=== PATIENT | female | born 1950 | race Caucasian/White ===

== ENCOUNTER 2021-10-20 08:55 | Day surgery (SDC) | payer MEDICARE, OTHER ==
[~2021-10-20 08:55] MED LIST: Metoclopramide 10 MG/2 ML SDV IV PRN; Sodium Chloride 0.9% 1,000 ML IV SCH
[2021-10-20] MEDS ORDERED: Propofol 200 MG/20 ML SDV ONE (12:50)
== END 2021-10-20 14:10 | disposition home or self-care (01) ==
LOC: LB.SDS 08:55
PROVIDERS: ATTEND Surgery
DX: Z12.11 Encounter for screening for malignant neoplasm of colon (principal); K57.30 Diverticulosis of large intestine without perforation or abscess without bleeding; I10 Essential (primary) hypertension
CPT/HCPCS: J2704; J7030

== ENCOUNTER 2022-07-05 07:47 | Emergency (ER) | payer MEDICARE, OTHER ==
[2022-07-05] MEDS ORDERED: Midazolam 1 MG/ML 2 ML SDV IVPUSH ONE ×3 (08:45→09:00)
[2022-07-05] MEDS ORDERED: fentaNYL 100 MCG/2 ML SDV IVPUSH ONE (08:45)
[2022-07-05] MEDS ORDERED: fentaNYL 100 MCG/2 ML SDV ONE ×2 (08:51→09:09)
[2022-07-05] MEDS ORDERED: Midazolam 1 MG/ML 2 ML SDV ONE ×3 (08:51→09:09)
[2022-07-05] MEDS: fentaNYL 100 MCG/2 ML SDV IVPUSH PRN ×2 (09:06→09:14)
== END 2022-07-05 10:52 | disposition home or self-care (01) ==
LOC: LB.ED 07:47
DX: S43.014A Anterior dislocation of right humerus, initial encounter (principal); S43.034A Inferior dislocation of right humerus, initial encounter; E78.00 Pure hypercholesterolemia, unspecified; I10 Essential (primary) hypertension; Z79.899 Other long term (current) drug therapy; W19.XXXA Unspecified fall, initial encounter
CPT/HCPCS: 23650; 73020-RT; 73030-RT; 99283; J2250; J3010

== ENCOUNTER 2023-03-20 08:20 | Emergency (ER) | payer MEDICARE, OTHER ==
[2023-03-20] MEDS: Ondansetron 4 MG Tab.DIS PO ONE (09:00)
[2023-03-20] MEDS: Sodium Chloride 0.9% 1,000 ML IV SCH ×2 (09:15→15:00)
[2023-03-20] MEDS: Potassium Chloride Riders 10 MEQ in Premix Bag 1 BAG IV ONE (10:35)
[2023-03-20 11:28] LABS: A/G RATIO 0.7 (0.8-2.0); ALBUMIN 2.9 g/dL (3.4-5.0); ANION GAP 19.2 mmol/L (5.0-15.0); BILIRUBIN TOTAL 0.7 mg/dL (0.0-1.0); BUN/CREATININE RATIO 25.6 (6-25); CALCIUM 8.5 mg/dL (8.5-10.1); CARBON DIOXIDE,CO2 21.6 mmol/L (21.0-32.0); CREATININE 1.33 mg/dL (0.55-1.02); EST CRCL DRUG DOSING (CG) 35.79 mL/min; PROTEIN TOTAL,TP 7.3 g/dL (6.4-8.2)
[2023-03-20 11:33] LABS: POTASSIUM,K 2.8 mmol/L (3.5-5.1)
[2023-03-20 11:43] LABS: WHITE BLOOD CELL COUNT,WBC 10.9 K/uL (4.0-11.0)
[2023-03-20 11:44] LABS: HEMATOCRIT 40.4 % (37.0-47.0); MEAN CORPUSCULAR HEMOGLOBIN 35.1 pg (27.0-32.0); MEAN CORPUSCULAR HGB CONC 32.2 g/dL (31.0-35.0); MEAN PLATELET VOLUME 9.6 fL (6.0-10.0); RED BLOOD CELL COUNT 3.7 M/uL (3.80-5.80); RED CELL DISTRIBUTION WIDTH 11.7 % (11.0-16.0)
[2023-03-20] MEDS: NS + KCl 20mEq/L 1,000 ML IV SCH (11:46)
[2023-03-20] MEDS: Potassium Chloride 20 MEQ Tab.ER PO ONE (11:50)
[2023-03-20 11:51] LABS: INFLUENZA A NAA POSITIVE (NEGATIVE); INFLUENZA B NAA NEGATIVE (NEGATIVE); RESPIRATORY SYNCYTIAL VIR NAA NEGATIVE (NEGATIVE)
[2023-03-20 11:55] LABS: CORONAVIRUS COVID-19 NAA NEGATIVE (NEGATIVE)
[2023-03-20] MEDS: Potassium Chloride Riders 50 ML ONE (14:26)
[2023-03-20 15:14] LABS: ANION GAP 17.1 mmol/L (5.0-15.0); BUN/CREATININE RATIO 27.4 (6-25); CALCIUM 7.8 mg/dL (8.5-10.1); CARBON DIOXIDE,CO2 20.7 mmol/L (21.0-32.0); CREATININE 1.13 mg/dL (0.55-1.02); EST CRCL DRUG DOSING (CG) 42.13 mL/min; POTASSIUM,K 3.8 mmol/L (3.5-5.1)
[2023-03-20] MEDS: Iodixanol 652 MG/ML 100 ML Bottle IV SCH (16:25)
[2023-03-20] MEDS: Sodium Chloride 0.9% 50 ML SDV FLUSH ONE (16:25)
== END 2023-03-20 18:09 | disposition home or self-care (01) ==
LOC: LB.ED 08:20
DX: R42 Dizziness and giddiness (principal); N17.9 Acute kidney failure, unspecified; E87.6 Hypokalemia; E86.0 Dehydration; I10 Essential (primary) hypertension; E78.00 Pure hypercholesterolemia, unspecified; Z79.899 Other long term (current) drug therapy
CPT/HCPCS: 0241U; 36415; 71275; 80048; 80053; 84132; 84484; 85027; 85379; 93005; 96360; 96361; 96365; 96366; 99284; A9270; J3480; J3490; J7030; Q0162; 93010

== ENCOUNTER 2023-03-22 13:12 | Emergency (ER) | payer MEDICARE, OTHER ==
[2023-03-22 14:44] LABS: HEMATOCRIT 39.3 % (37.0-47.0); HEMOGLOBIN 12.1 g/dL (11.5-16.5); MEAN CORPUSCULAR HEMOGLOBIN 34.7 pg (27.0-32.0); MEAN CORPUSCULAR HGB CONC 30.8 g/dL (31.0-35.0); MEAN CORPUSCULAR VOLUME 113 fL (76-96); MEAN PLATELET VOLUME 9.5 fL (6.0-10.0); PLATELET COUNT,PLT 419 K/uL (150-500); RED BLOOD CELL COUNT 3.49 M/uL (3.80-5.80); RED CELL DISTRIBUTION WIDTH 11.7 % (11.0-16.0); WHITE BLOOD CELL COUNT,WBC 11.5 K/uL (4.0-11.0)
[2023-03-22 15:06] LABS: A/G RATIO 0.6 (0.8-2.0); ALBUMIN 2.5 g/dL (3.4-5.0); ANION GAP 15.8 mmol/L (5.0-15.0); BILIRUBIN TOTAL 0.6 mg/dL (0.0-1.0); BUN/CREATININE RATIO 18.3 (6-25); CALCIUM 8.3 mg/dL (8.5-10.1); CARBON DIOXIDE,CO2 20.6 mmol/L (21.0-32.0); CREATININE 0.93 mg/dL (0.55-1.02); EST CRCL DRUG DOSING (CG) 49.2 mL/min; POTASSIUM,K 3.4 mmol/L (3.5-5.1); PROTEIN TOTAL,TP 6.6 g/dL (6.4-8.2)
[2023-03-22 15:15] LABS: GIANT PLATELETS OCCASIONAL
[2023-03-22] MEDS: Magnesium Sulfate/Water 2 GM in Premix Bag 1 BAG IV SCH (15:59)
[2023-03-22] MEDS ORDERED: Magnesium Sulfate/Water 2 GM in Premix Bag 1 BAG IV SCH (16:00)
[2023-03-22] MEDS: Magnesium Sulfate/Water 4 GM in Premix Bag 1 BAG IV ONE (18:50)
== END 2023-03-22 20:00 | disposition home or self-care (01) ==
LOC: LB.ED 13:12
DX: E83.42 Hypomagnesemia (principal); R53.1 Weakness; E87.6 Hypokalemia; I10 Essential (primary) hypertension; E78.00 Pure hypercholesterolemia, unspecified; E66.9 Obesity, unspecified; Z68.33 Body mass index [BMI] 33.0-33.9, adult; Z79.899 Other long term (current) drug therapy
CPT/HCPCS: 36415; 80053; 83735; 85025; 96365; 96366; 99284; J3475; 99283

== ENCOUNTER 2023-05-01 08:55 | Emergency (ER) | payer MEDICARE, OTHER ==
[2023-05-01 09:51] LABS: BASOPHILS ABSOLUTE AUTO 0.03 K/uL (0.02-0.10); BASOPHILS PERCENT AUTO 0.4 % (0.0-0.5); EOSINOPHILS ABSOLUTE AUTO 0.18 K/uL (0.04-0.40); EOSINOPHILS PERCENT AUTO 2.3 % (1.0-5.0); HEMATOCRIT 33.3 % (37.0-47.0); HEMOGLOBIN 10.6 g/dL (11.5-16.5); LYMPHOCYTES ABSOLUTE AUTO 0.98 K/uL (1.50-4.00); LYMPHOCYTES PERCENT AUTO 12.3 % (20.0-40.0); MEAN CORPUSCULAR HEMOGLOBIN 32.8 pg (27.0-32.0); MEAN CORPUSCULAR HGB CONC 31.8 g/dL (31.0-35.0); MEAN CORPUSCULAR VOLUME 103 fL (76-96); MEAN PLATELET VOLUME 9.3 fL (6.0-10.0); MONOCYTES ABSOLUTE AUTO 0.45 K/uL (0.20-0.80); MONOCYTES PERCENT AUTO 5.6 % (3.0-10.0); NEUTROPHILS ABSOLUTE AUTO 6.35 K/uL (2.00-7.50); NEUTROPHILS PERCENT AUTO 79.4 % (45.0-70.0); PLATELET COUNT,PLT 340 K/uL (150-500); RED BLOOD CELL COUNT 3.23 M/uL (3.80-5.80); RED CELL DISTRIBUTION WIDTH 12.4 % (11.0-16.0)
[2023-05-01 10:17] LABS: A/G RATIO 0.7 (0.8-2.0); ALBUMIN 2.5 g/dL (3.4-5.0); ANION GAP 12.3 mmol/L (5.0-15.0); BILIRUBIN TOTAL 0.6 mg/dL (0.0-1.0); BUN/CREATININE RATIO 7.8 (6-25); CALCIUM 8.4 mg/dL (8.5-10.1); CARBON DIOXIDE,CO2 26.8 mmol/L (21.0-32.0); CREATININE 0.64 mg/dL (0.55-1.02); EST CRCL DRUG DOSING (CG) 71.5 mL/min; POTASSIUM,K 4.1 mmol/L (3.5-5.1); PROTEIN TOTAL,TP 6.3 g/dL (6.4-8.2)
[2023-05-01 10:20] LABS: APPEARANCE,URINE CLEAR (CLEAR); BILIRUBIN,URINE SMALL (NEGATIVE); COLOR,URINE YELLOW; GLUCOSE,URINE NEGATIVE (NEGATIVE); KETONES,URINE NEGATIVE (NEGATIVE); LEUKOCYTE ESTERASE,URINE NEGATIVE (NEGATIVE); NITRITE,URINE NEGATIVE (NEGATIVE); OCCULT BLOOD,URINE TRACE-INTACT (NEGATIVE); PROTEIN,URINE NEGATIVE (NEGATIVE); UROBILINOGEN,URINE 0.2 E.U./dL (0.2-1.0)
[2023-05-01 10:26] LABS: RBC,URINE 0-5 /HPF; SQUAMOUS EPITHELIAL CELLS,UR FEW /HPF; WBC,URINE 0-5 /HPF
[2023-05-01 10:27] LABS: AMORPHOUS SEDIMENT,URINE MODERATE /HPF; BACTERIA,URINE FEW /HPF; MUCUS,URINE FEW /HPF; TRIPLE PHOSPHATE CRYSTALS,UR MODERATE /HPF
== END 2023-05-01 12:50 | disposition home or self-care (01) ==
LOC: LB.ED 08:55
DX: K57.32 Diverticulitis of large intestine without perforation or abscess without bleeding (principal); I10 Essential (primary) hypertension; E78.00 Pure hypercholesterolemia, unspecified; E66.9 Obesity, unspecified; Z79.899 Other long term (current) drug therapy; Z68.31 Body mass index [BMI] 31.0-31.9, adult
CPT/HCPCS: 36415; 74176; 80053; 81001; 85025; 99283; 99284